=== PATIENT | female | born 1930 | race Caucasian/White ===

== ENCOUNTER 2016-11-19 17:06 | Emergency (ER) | payer OTHER ==
--- NOTE | 2016-11-19 21:09 | ED CLINICAL REPORT ---
Clinical Report - Physicians/Mid Levels [facility] [address] [place] [address] 11/19/2016 17:06 Patient: SORIN DIAZ Time Seen: 1845. Arrived- By private vehicle. Historian- patient. HISTORY OF PRESENT ILLNESS Chief Complaint: NEAR-SYNCOPE. Severity described as moderate at its maximum. When seen in the E.D., severity described as mild. Modifying factors- worsened by standing up. Relieved by rest. Described as feeling light-headed. This started just prior to arrival today and is still present. It was abrupt in onset and has been constant but is not gone now. No vomiting, hearing loss, tinnitus or ear pain. Similar symptoms previously: None. Recent medical care: Not recently seen/assessed. REVIEW OF SYSTEMS No headache, double vision, chest pain, fever or difficulty breathing. All systems otherwise negative, except as recorded above. PAST HISTORY See nurses notes. Medications: Calcium + D Oral daily . Vitamin C daily. ASA Oral 81mg , daily . Hydrochlorothiazide Oral 12.5 mg, daily. Vits multi, daily . Atorvastatin Calcium Oral 10 mg, daily. Allergies: Septra. Sulfa Antibiotics. SOCIAL HISTORY Never smoker. No alcohol use or drug use. No recent travel. Is a local resident. ADDITIONAL NOTES The nursing notes have been reviewed. PHYSICAL EXAM Vital Signs: 11/19/2016 17:18 BP: 179/72. HR: 108. RR: 20. O2 saturation: 99%. Temp: 98.2 F. Pain level now: 0/10. Oxygen saturation normal. Appearance: Alert. No acute distress. (pleasant. Cooperative. The leg.). Eyes: Pupils equal, round and reactive to light. No nystagmus. Extraocular movements normal. ENT: Normal ENT inspection. TM's normal. Moist mucous membranes. Pharynx normal. Neck: Normal inspection. Neck supple. No meningeal signs. CVS: Normal heart rate and rhythm. Heart sounds normal. Pulses normal. Respiratory: No respiratory distress. Breath sounds normal. Abdomen: Soft and nontender. No organomegaly. Skin: Skin warm and dry. Normal skin color. No rash. Normal skin turgor. Extremities: Extremities exhibit normal ROM. No lower extremity edema. Neuro: Alert. Oriented X 3. Mood/affect normal. Speech normal. Cranial nerves normal (as tested). No cerebellar findings. No motor deficit. No sensory deficit. Reflexes normal. LABS, X-RAYS, AND EKG EKG: Normal sinus rhythm. Normal P waves. Normal MANSI. Normal QRS complex. Normal axis. Normal ST and T waves, QT and QTc. The study has been interpreted contemporaneously. The study has been independently viewed by me. The EKG appears to be a good tracing. Laboratory Tests: UA-Culture if indicated: (BRIT: 11/19/2016 20:10) ( [facility] 11/19/2016 21:04) IP Test Result Flag Units (Reference) URINE COLOR YELLOW URINE APPEARANCE CLEAR URINE GLUCOSE NEGATIVE (NEGATIVE) URINE BILIRUBIN NEGATIVE (NEGATIVE) URINE KETONE 1+ (NEGATIVE) URINE SPECIFIC GRAVITY 1.015 (1.010-1.030) URINE PH 7.0 (5.0-8.0) URINE PROTEIN NEGATIVE (NEGATIVE) URINE UROBILINOGEN 0.2 EU/dL (0.2-1.0) URINE NITRITE NEGATIVE (NEGATIVE) URINE BLOOD TRACE-INTACT (NEGATIVE) URINE LEUK ESTERASE NEGATIVE (NEGATIVE) CBC w Diff: (BRIT: 11/19/2016 19:30) ( [facility] 11/19/2016 19:57) Final results Test Result Flag Units (Reference) WHITE BLOOD COUNT 9.1 K/uL (4.5-11.5) RED BLOOD COUNT 4.85 M/uL (4.00-5.20) HEMOGLOBIN 15.2 gm/dL (12.0-16.0) HEMATOCRIT 45.5 % (36.0-46.0) MEAN CELL VOLUME 94 fL (80-100) MEAN CORPUSCULAR HGB 31 pg (26-34) MEAN CORPUSCULAR HGB CONC 33 g/dL (31-37) RED CELL DISTRIBUTION WIDTH 13.2 % (11.6-14.8) PLATELET COUNT 274 K/uL (150-400) NEUTROPHIL % 81.5 H % (50-75) LYMPH % 15.3 L % (25-40) MONO % 2.6 L % (3-14) EOSINOPHIL % 0.3 % (0-4) BASOPHIL % 0.3 % (0-2) CMP: (BRIT: 11/19/2016 19:30) ( MsgRcvd 11/19/2016 20:46) Final results Test Result Flag Units (Reference) GLUCOSE 134 H mg/dL (70-110) BUN 14 mg/dL (7-18) CREATININE 0.7 mg/dL (0.6-1.3) Estimated GFR >60 mL/min Estimated GFR- >60 mL/min Note: Persistent reduction over 3 months in eGFR<60 mL/min/1.73 m2 defines CKD. Patients with eGFR values>=60 mL/min/1.73 m2 may also have CKD if evidence ofpersistent proteinuria. Additional information may be foundat [email or web address].org. SODIUM 138 mmol/L (136-145) POTASSIUM 4.0 mmol/L (3.5-5.1) CHLORIDE 99 mmol/L (98-107) CARBON DIOXIDE 29 mmol/L (21-32) CALCIUM 9.1 mg/dL (8.5-10.1) TOTAL PROTEIN 8.1 g/dL (6.4-8.2) ALBUMIN 4.0 g/dL (3.3-5.0) BILIRUBIN, TOTAL 0.7 mg/dL (0.0-1.0) ALKALINE PHOSPHATASE 66 U/L (46-116) AST (SGOT) 26 U/L (15-37) ALT (SGPT) 35 U/L (12-78) TROPONIN I <0.05 ng/mL (0.00-1.5) TROPONIN REFERENCE RANGE:<0.1 NEGATIVE0.1-1.5 INDETERMINANT>1.5 POSITIVE THYROID STIMULATING HORMONE 3.251 uIU/mL (0.30-3.74) . PROGRESS AND PROCEDURES Course of Care: The patient is a pleasant 85-year-old female presenting for evaluation of near syncope Patient describes a sensation of dizziness as lightheadedness. Patient will be evaluated with the [facility] role. Patient is agreeable to the treatment and plan. Laboratory studies will also be ordered for evaluation of potential infectious etiology including urinary tract infection. Lungs are clear on auscultation. No signs of shortness of breath onhistory or examination. Do not feel chest x-ray is warranted at this time. Patient is afebrile. The patient's work up was remarkable for the findings above. No acute findings noted on patient's urinalysis. All joints are unremarkable. No signs of anemia. Patient did have a mild tachycardia on presentation at 108 which has improved with IV hydration. Suspect patient is hypovolemic secondary to dehydration. Do not feel patient has infectious etiology or more sinister causes for her lightheadedness today. Patient has a negative workup with the [facility] be role. Patient is a stable outpatient candidate. Do not feel further workup here in the emergency department is required. Patient will be encouraged to follow up with her primary care DrPankaj if symptoms continue or persist. discussed with the patient her workup here in the emergency department including diagnosis, home care, follow-up, and return precautions. All questions have been answered. The patient expressed understanding of these instructions and was agreeable to them. Patient was reevaluated prior to discharge. Symptoms had significantly improved. Patient with some nausea which has improved with Zofran prior to departure from the emergency department. CLINICAL IMPRESSION Acute dizziness Moderate nausea. No vomiting. INSTRUCTIONS Warnings: GENERAL WARNINGS: Return or contact your physician immediately if your condition worsens or changes unexpectedly, if not improving as expected, or if other problems arise. SPECIFICALLY, return if you develop chest pain, fluttering sensation in your chest, lightheadedness, fainting, numbness, weakness or extreme fatigue. fever. Your Current Medications: CONTINUE TAKING THE FOLLOWING MEDICATIONS: ASA Oral : 81mg daily. Atorvastatin Calcium Oral : 10 mg daily. Calcium + D Oral : daily. Hydrochlorothiazide Oral : 12.5 mg daily. Vitamin C daily*. Vits multi, daily *. Prescription Medications: Zofran (orally disintegrating tablets) 4 mg: take 1 orally every 8 hours as needed for nausea and vomiting. Dispense ten (10). No refill. Substitution is permissible. Follow-up: Return to the emergency department as needed. Follow up with your doctor in three days. Reason for referral: recheck today's concerns. Summary of care provided to patient via paper. Screening today revealed the patient's blood pressure to be in the normal range. The patient should follow up with a primary care provider for blood pressure management. Understanding of the discharge instructions verbalized by patient. (Electronically signed by Ramsey Cornell Dr. 11/21/2016 13:20)
--- NOTE | 2016-11-19 21:10 | ED ORDER SUMMARY ---
..... 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) (18:44 11/19/2016 [place] Heredia) (18:46 SRoberts R.N.) CBC w Diff Urgent (18:45 11/19/2016 [place] Heredia) (Ack 18:46 Bcrner) (18:58 SRoberts R.N.) CMP Urgent (18:45 11/19/2016 [place] Heredia) (Ack 18:46 YUSUFoerner) (18:58 SRoberts R.N.) UA-Culture if indicated Urgent (18:45 11/19/2016 [place] Heredia) (Ack 18:46 YUSUFoerner) (22:45 SRoberts R.N.) Troponin-I Urgent (18:45 11/19/2016 [place] Heredia) (Ack 18:46 Bcrner) (18:58 SRoberts R.N.) Lactate, Serum Urgent (18:45 11/19/2016 [place] Heredia) (Ack 18:46 Veronicaner) (18:58 SRoberts R.N.) TSH Urgent (18:45 11/19/2016 [place] Heredia) (Ack 18:46 Bcrner) (18:58 SRoberts R.N.) Pulse oximeter (18:45 11/19/2016 [place] Heredia) (18:46 SRoberts R.N.) EKG - ER Stat (18:45 11/19/2016 [place] Heredia) (18:46 SRoberts R.N.) MEDICATION ORDERS: IV FLUIDS: IV Saline Lock (18:13 11/19/2016 Osmants R.N. per protocol) (Ack 18:13 SRoberts R.N.) (22:46 SRoberts R.N.) IV NS : initial bolus 1000 mL (1000 mL/hr), then none - for X1 (NOW) (18:45 11/19/2016 [place] Heredia) (Ack 18:48 Jazmin Colon) (19:02 Jazmin Colon) Zofran IV 4 mg (NOW) (21:22 11/19/2016 [place] Heredia) (21:51 HSoule) ORDER SHEET NOTES: [Electronically signed by Felicia Sanches R.N. (22:47 11/19/2016)] [Electronically signed by Ramsey Cornell Dr. (13:20 11/21/2016)] [Electronically locked/signed by Felicia Sanches R.N. (22:47 11/19/2016)]
--- NOTE | 2016-11-19 21:10 | ED ORDER SUMMARY ---
..... 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) (18:44 11/19/2016 [place] Heredia) (18:46 SRoberts R.N.) CBC w Diff Urgent (18:45 11/19/2016 [place] Heredia) (Ack 18:46 Bcrner) (18:58 SRoberts R.N.) CMP Urgent (18:45 11/19/2016 [place] Heredia) (Ack 18:46 YUSFUoerner) (18:58 SRoberts R.N.) UA-Culture if indicated Urgent (18:45 11/19/2016 [place] Heredia) (Ack 18:46 YUSUFoerner) (22:45 SRoberts R.N.) Troponin-I Urgent (18:45 11/19/2016 [place] Heredia) (Ack 18:46 Bcrner) (18:58 SRoberts R.N.) Lactate, Serum Urgent (18:45 11/19/2016 [place] Heredia) (Ack 18:46 Veronicaner) (18:58 SRoberts R.N.) TSH Urgent (18:45 11/19/2016 [place] Heredia) (Ack 18:46 Bcrner) (18:58 SRoberts R.N.) Pulse oximeter (18:45 11/19/2016 [place] Heredia) (18:46 SRoberts R.N.) EKG - ER Stat (18:45 11/19/2016 [place] Heredia) (18:46 SRoberts R.N.) MEDICATION ORDERS: IV FLUIDS: IV Saline Lock (18:13 11/19/2016 Osmants R.N. per protocol) (Ack 18:13 SRoberts R.N.) (22:46 SRoberts R.N.) IV NS : initial bolus 1000 mL (1000 mL/hr), then none - for X1 (NOW) (18:45 11/19/2016 [place] Heredia) (Ack 18:48 Jazmin Colon) (19:02 Jazmin Colon) Zofran IV 4 mg (NOW) (21:22 11/19/2016 [place] Heredia) (21:51 HSoule) ORDER SHEET NOTES: [Electronically signed by Felicia Sanches R.N. (22:47 11/19/2016)] [Electronically signed by Ramsey Cornell Dr. (13:20 11/21/2016)] [Electronically locked/signed by Felicia Sanches R.N. (22:47 11/19/2016)]
--- NOTE | 2016-11-19 21:10 | ED NURSING NOTES ---
Clinical Report - Nurses [facility] [address] [place] [address] 11/19/2016 17:06 Patient: SORIN DIAZ TRIAGE Triage time 17:20. Acuity: LEVEL 3. Chief Complaint: NAUSEA and VOMITING and (Light headed since 0300 am). Alert. No acute distress. SEPSIS SCREEN: Sepsis Screen: negative. Negative (no infection suspected/documented). --17:30 Felicia Sanches R.N. 17:18 11/19/16. BP: 179/72. HR: 108. RR: 20. O2 saturation: 99%. Temp: 98.2 F. Pain level now: 0/10. --17:30 Felicia Sanches R.N. Weight: 70.3 kg stated. Height/Length: 64 inches Per Patient. BMI: 26.6. --17:28 Felicia Sanches R.N. Medications Atorvastatin Calcium Oral 10 mg, daily. --17:23 Felicia Sanches R.N. Vits multi, daily . --17:23 Felicia Sanches R.N. Hydrochlorothiazide Oral 12.5 mg, daily. --17:23 Felicia Sanches R.N. ASA Oral 81mg , daily . --17:24 Felicia Sanches R.N. Vitamin C daily. --17:24 Felicia Sanches R.N. Calcium + D Oral daily . --17:26 Felicia Sanches R.N. Medication/allergy information source: the patient. --17:30 Felicia Sanches R.N. Allergies Sulfa Antibiotics. --17:22 Felicia Sanches R.N. Septra. --17:22 Felicia Sanches R.N. History Arrived by private vehicle. Historian: patient and family. Accompanied by family. Primary physician (Shaji). This started last night. She has had nausea and vomiting. No abdominal pain or fever. 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 PAST MEDICAL HX: The patient is post-menopausal. SOCIAL HX: Never smoker. Alcohol use; consumes one wine daily. No drug use. FALL RISK ASSESSMENT: Fall risk assessment completed. No fall risk identified. NUTRITIONAL RISK ASSESSMENT: The nutritional risk assessment revealed no deficiencies. FUNCTIONAL ASSESSMENT: Functional assessment: no impairments noted. LEARNING NEEDS ASSESSMENT: The learning needs assessment revealed no barriers. SKIN INTEGRITY ASSESSMENT: Skin integrity risk assessment completed. No skin integrity risk identified. --17:30 Felicia Sanches R.N. Last oral intake by patient was today 2 hours ago (water only). --17:31 Felicia Sanches R.N. PROBLEMS: Laceration. Hypertension. Hyperlipidemia. --17:27 Felicia Sanches R.N. ADDITIONAL SURGERIES: Breast Biopsy. Hammertoe . Knee Surgery. --17:27 Felicia Sanches R.N. Interventions ID band on patient. To room. --17:30 Felicia Sanches R.N. PHYSICAL ASSESSMENT To room via wheelchair. Patient gowned. GENERAL / NEURO / PSYCH: Alert. Oriented X 4. Appears anxious. HEENT: Mucous membranes are pink. RESPIRATORY: Respirations not labored. CVS: Capillary refill less than 2 seconds. GI / : Abdomen soft and nontender. SKIN: Skin is warm and dry. --17:31 Feliica Sanches R.N. NURSING PROGRESS NOTES Patient gowned. Head of bed elevated. Two patient identifiers checked. Call light placed in reach. Side rails up x 2. Bed placed in lowest position. Brakes of bed on. Patient ready for evaluation. --17:31 Felicia Sanches R.N. 19:11/19/2016 Site #1 started via IV in the left forearm with an 20g angiocath, with aseptic technique and good blood return; one attempt. Saline lock flushed with 10 mL saline. --19: Felicia Sanches R.N. 19:11/19/2016 Started bag #1 1000 mL IV Fluids IV NS (Saline); bolus of 1000 mL over 1 hour(s) then at 1000 mL/hr over 1 hour(s) via site #1 via IV pump. Allergies verified and confirmed 5 rights. IV patency established. IV site checked: no pain, redness, or swelling. IV flushed thoroughly pre- and post-medication administration. --19:02 Felicia Sanches R.N. 20:01 11/19/2016 IV Fluids IV NS Discontinued: bag #1 infused. Total amount infused: 1000 mL. IV patency established. IV site checked: no pain, redness, or swelling. IV flushed thoroughly. --20:01 Felicia Sanches R.N. 20:03 11/19/16. ( Ambulated to the bathroom, to void. Assisted by the to ambulated.). --20:03 Felicia Sanches R.N. 20:21. Patient ID band checked for patient name: patient confirmed. Clean catch urine collected with return of yellow-colored clear urine; sample sent to lab for urinalysis and culture. Specimen labeled in the presence of the patient. --20:26 Felicia Sanches R.N. 21:26 11/19/2016 Zofran (Ondansetron HCl) IVP 4 mg given over 2 minute(s) via site #1. Allergies verified and confirmed 5 rights. IV patency established. IV site checked: no pain, redness, or swelling. IV flushed thoroughly pre- and post-medication administration. IVP given by RN. --21:51 Neva Reveles. DISPOSITION / DISCHARGE 21:35. Condition at departure: improved. No learning barriers present. Discharge instructions provided and reviewed with the patient and spouse. Reviewed medication(s) side effects, precautions, dosing and course information. Prescription(s) given to the patient. Patient verbalized understanding. Written instructions provided in Lao. The patient was discharged home and accompanied by spouse. She left the Emergency Department ambulatory and via private vehicle. Spouse driving. Medication list reviewed and validated. --22:45 Felicia Sanches R.N. 21:30 11/19/16. BP: 156/79. HR: 88. RR: 18. O2 saturation: 99%. Temp: 98.8 F. Pain level now: 0/10. 19:23 11/19/16. BP: 165/88. HR: 85. RR: 20. O2 saturation: 98% on room air. 18:13 11/19/16. BP: 169/74. HR: 78. RR: 20. O2 saturation: 99% on room air. 17:18 11/19/16. BP: 179/72. HR: 108. RR: 20. O2 saturation: 99%. Temp: 98.2 F. Pain level now: 0/10. --22:45 Felicia Sanches R.N. Locked/Released at 11/19/2016 22:47 by Felicia Sanches R.N.
--- NOTE | 2016-11-21 13:21 | ED MAR SUMMARY ---
..... Medication Administration Record [facility] [address] [place] [address] Patient: SORIN DIAZ Visit ID: [id number] 85y, F Weight: 70.3 kg Height/Length: 64 in BMI: 26.6 ALLERGIES: Septra, Sulfa Antibiotics Start 19:02 11/19/2016 Felicia Sanches R.N., Stop 20:01 11/19/2016 Felicia Sanches R.N. Medication Administered: IV NS (SALINE), Dose: IV Fluids over 1 hour(s), Rate: 1000 mL/hr, Bolus: 1000 mL over 1 hour(s), Dispensed: 1000 mL bag, Site: #1 left forearm. Medication Ordered: IV NS : initial bolus 1000 mL (1000 mL/hr), then none - for X1 (NOW). Given 21:26 11/19/2016 Neva Reveles, Medication Administered: ZOFRAN [IVP] (ONDANSETRON HCL), Dose: 4 mg IVP over 2 minute(s), Site: #1 left forearm. Medication Ordered: Zofran IV 4 mg (NOW).
--- NOTE | 2016-11-21 13:21 | ED DISCHARGE INSTRUCTIONS ---
Patient: SORIN DIAZ General Instructions [facility] VisitID: [id number] [place] [address] 85y, F Registration Date/Time: 11/19/2016 Acute dizziness Moderate nausea. No vomiting. INSTRUCTIONS Warnings: GENERAL WARNINGS: Return or contact your physician immediately if your condition worsens or changes unexpectedly, if not improving as expected, or if other problems arise. SPECIFICALLY, return if you develop chest pain, fluttering sensation in your chest, lightheadedness, fainting, numbness, weakness or extreme fatigue. fever. Your Current Medications: CONTINUE TAKING THE FOLLOWING MEDICATIONS: ASA Oral : 81mg daily. Atorvastatin Calcium Oral : 10 mg daily. Calcium + D Oral : daily. Hydrochlorothiazide Oral : 12.5 mg daily. Vitamin C daily*. Vits multi, daily *. Prescription Medications: Zofran (orally disintegrating tablets) 4 mg: take 1 orally every 8 hours as needed for nausea and vomiting. Dispense ten (10). No refill. Substitution is permissible. Follow-up: Return to the emergency department as needed. Follow up with your doctor in three days. Reason for referral: recheck today's concerns. Summary of care provided to patient via paper. Screening today revealed the patient's blood pressure to be in the normal range. The patient should follow up with a primary care provider for blood pressure management. Understanding of the discharge instructions verbalized by patient. ADDITIONAL INFORMATION Dizziness [Uncertain Cause] Dizziness is a common symptom sometimes described as "lightheadedness" or feeling like you are going to faint. If it lasts for only a few seconds and is related to changes in position (such as getting up after lying or sitting for a long time), it is usually not a sign of anything serious. Dizziness that lasts for minutes to hours, or comes on for no apparent reason, may be a sign of a more serious problem (such as dehydration, a medicine reaction, disease of the heart or brain). Today's exam did not show an exact cause for your dizzy spell . Sometimes additional tests are required before a cause can be found. Therefore, it is important to follow up with your doctor if your symptoms continue. Home Care: 1) If a dizzy spell occurs and lasts more than a few seconds, lie down until it passes. If you are lying down, then you cannot hurt yourself by falling if you do faint. 2) Do not drive or operate dangerous equipment until the dizzy spells have stopped for at least 48 hours. 3) If dizzy spells occur with sudden standing, this may be a sign of mild dehydration. Drink extra fluids over the next few days. 4) If you recently started a new medicine or if you had the dose of a current medicine increased (especially blood pressure medicine), talk with the prescribing doctor about your symptoms. Dose adjustments may be needed. Follow Up with your doctor for further evaluation within the next seven days, if your symptoms continue. Get Prompt Medical Attention if any of the following occur: -- Worsening of your symptoms -- Fainting, headache or seizure -- Repeated vomiting -- Feeling like you or the room is spinning -- Chest, arm, neck, back or jaw pain -- Palpitations (the sense that your heart is fluttering or beating fast or hard) -- Shortness of breath -- Blood in vomit or stool (black or red color) -- Weakness of an arm or leg or one side of the face -- Difficulty with speech or vision Ondansetron Oral disintegrating tablet What is this medicine? ONDANSETRON (on [place] se wendy) is used to treat nausea and vomiting caused by chemotherapy. It is also used to prevent or treat nausea and vomiting after surgery. How should I use this medicine? These tablets are made to dissolve in the mouth. Do not try to push the tablet through the foil backing. With dry hands, peel away the foil backing and gently remove the tablet. Place the tablet in the mouth and allow it to dissolve, then swallow. While you may take these tablets with water, it is not necessary to do so. Talk to your statistician theoretical regarding the use of this medicine in children. Special care may be needed. What side effects may I notice from receiving this medicine? Side effects that you should report to your doctor or health child care associate teacher as soon as possible: allergic reactions like skin rash, itching or hives, swelling of the face, lips, or tongue breathing problems dizziness fast or irregular heartbeat feeling faint or lightheaded, falls fever and chills swelling of the hands and feet tightness in the chest Side effects that usually do not require medical attention (report to your doctor or health child care associate teacher if they continue or are bothersome): constipation or diarrhea headache What may interact with this medicine? Do not take this medicine with any of the following medications: -apomorphine -cisapride -dofetilide -dronedarone -pimozide -thioridazine -ziprasidone This medicine may also interact with the following medications: -carbamazepine -phenytoin -rifampicin -tramadol -other medicines that prolong the QT interval (cause an abnormal heart rhythm) What if I miss a dose? If you miss a dose, take it as soon as you can. If it is almost time for your next dose, take only that dose. Do not take double or extra doses. Where should I keep my medicine? Keep out of the reach of children. Store between 2 and 30 degrees C (36 and 86 degrees F). Throw away any unused medicine after the expiration date. What should I tell my health care provider before I take this medicine? They need to know if you have any of these conditions: heart disease history of irregular heartbeat liver disease low levels of magnesium or potassium in the blood an unusual or allergic reaction to ondansetron, granisetron, other medicines, foods, dyes, or preservatives or trying to get breast-feeding What should I watch for while using this medicine? Check with your doctor or health child care associate teacher as soon as you can if you have any sign of an allergic reaction. You have been given the following additional information: Dizziness, Unk Cause Ondansetron Oral disintegrating tablet (Electronically signed by Ramsey Cornell Dr. 11/21/2016 13:20)
--- NOTE | 2016-11-21 13:21 | ED MAR SUMMARY ---
..... Medication Administration Record [facility] [address] [place] [address] Patient: SORIN DIAZ Visit ID: [id number] 85y, F Weight: 70.3 kg Height/Length: 64 in BMI: 26.6 ALLERGIES: Septra, Sulfa Antibiotics Start 19:02 11/19/2016 Felicia Sanches R.N., Stop 20:01 11/19/2016 Felicia Sanches R.N. Medication Administered: IV NS (SALINE), Dose: IV Fluids over 1 hour(s), Rate: 1000 mL/hr, Bolus: 1000 mL over 1 hour(s), Dispensed: 1000 mL bag, Site: #1 left forearm. Medication Ordered: IV NS : initial bolus 1000 mL (1000 mL/hr), then none - for X1 (NOW). Given 21:26 11/19/2016 Neva Reveles, Medication Administered: ZOFRAN [IVP] (ONDANSETRON HCL), Dose: 4 mg IVP over 2 minute(s), Site: #1 left forearm. Medication Ordered: Zofran IV 4 mg (NOW).
--- NOTE | 2016-11-21 13:21 | ED MED RECONCILIATION SUMMARY ---
Patient: SORIN DIAZ Medication Reconciliation Report [facility] VisitID: [id number] [address] [place] [address] 85y, F Registration Date/Time: 11/19/2016 Weight: 70.3 kg Height/Length: 64 in. BMI: 26.6 ALLERGIES: Septra, Sulfa Antibiotics The patient's Home Medications are listed below: CONTINUE TAKING THE FOLLOWING MEDICATIONS: ASA Oral 81mg , daily Atorvastatin Calcium Oral 10 mg, daily Calcium + D Oral daily Hydrochlorothiazide Oral 12.5 mg, daily Vitamin C daily Vits multi, daily The source(s) of the original Home Medication information: patient The following Medications were given to the patient in the Emergency Department: IV NS IV Fluids bolus 1000 mL over 1 hour(s), then 1000 mL/hr, administered: 11/19/2016 7:02:00 PM Zofran [IVP] IVP 4 mg, administered: 11/19/2016 9:26:00 PM The following Medications were prescribed to the patient: Zofran (orally disintegrating tablets) 4 mg: take 1 orally every 8 hours as needed for nausea and vomiting. Dispense ten (10). No refill. Substitution is permissible. -- Ramsey [address] Dr.
--- NOTE | 2016-11-21 13:21 | ED DISCHARGE INSTRUCTIONS ---
Patient: SORIN DIAZ General Instructions [facility] VisitID: [id number] [place] [address] 85y, F Registration Date/Time: 11/19/2016 Acute dizziness Moderate nausea. No vomiting. INSTRUCTIONS Warnings: GENERAL WARNINGS: Return or contact your physician immediately if your condition worsens or changes unexpectedly, if not improving as expected, or if other problems arise. SPECIFICALLY, return if you develop chest pain, fluttering sensation in your chest, lightheadedness, fainting, numbness, weakness or extreme fatigue. fever. Your Current Medications: CONTINUE TAKING THE FOLLOWING MEDICATIONS: ASA Oral : 81mg daily. Atorvastatin Calcium Oral : 10 mg daily. Calcium + D Oral : daily. Hydrochlorothiazide Oral : 12.5 mg daily. Vitamin C daily*. Vits multi, daily *. Prescription Medications: Zofran (orally disintegrating tablets) 4 mg: take 1 orally every 8 hours as needed for nausea and vomiting. Dispense ten (10). No refill. Substitution is permissible. Follow-up: Return to the emergency department as needed. Follow up with your doctor in three days. Reason for referral: recheck today's concerns. Summary of care provided to patient via paper. Screening today revealed the patient's blood pressure to be in the normal range. The patient should follow up with a primary care provider for blood pressure management. Understanding of the discharge instructions verbalized by patient. ADDITIONAL INFORMATION Dizziness [Uncertain Cause] Dizziness is a common symptom sometimes described as "lightheadedness" or feeling like you are going to faint. If it lasts for only a few seconds and is related to changes in position (such as getting up after lying or sitting for a long time), it is usually not a sign of anything serious. Dizziness that lasts for minutes to hours, or comes on for no apparent reason, may be a sign of a more serious problem (such as dehydration, a medicine reaction, disease of the heart or brain). Today's exam did not show an exact cause for your dizzy spell . Sometimes additional tests are required before a cause can be found. Therefore, it is important to follow up with your doctor if your symptoms continue. Home Care: 1) If a dizzy spell occurs and lasts more than a few seconds, lie down until it passes. If you are lying down, then you cannot hurt yourself by falling if you do faint. 2) Do not drive or operate dangerous equipment until the dizzy spells have stopped for at least 48 hours. 3) If dizzy spells occur with sudden standing, this may be a sign of mild dehydration. Drink extra fluids over the next few days. 4) If you recently started a new medicine or if you had the dose of a current medicine increased (especially blood pressure medicine), talk with the prescribing doctor about your symptoms. Dose adjustments may be needed. Follow Up with your doctor for further evaluation within the next seven days, if your symptoms continue. Get Prompt Medical Attention if any of the following occur: -- Worsening of your symptoms -- Fainting, headache or seizure -- Repeated vomiting -- Feeling like you or the room is spinning -- Chest, arm, neck, back or jaw pain -- Palpitations (the sense that your heart is fluttering or beating fast or hard) -- Shortness of breath -- Blood in vomit or stool (black or red color) -- Weakness of an arm or leg or one side of the face -- Difficulty with speech or vision Ondansetron Oral disintegrating tablet What is this medicine? ONDANSETRON (on [place] se wendy) is used to treat nausea and vomiting caused by chemotherapy. It is also used to prevent or treat nausea and vomiting after surgery. How should I use this medicine? These tablets are made to dissolve in the mouth. Do not try to push the tablet through the foil backing. With dry hands, peel away the foil backing and gently remove the tablet. Place the tablet in the mouth and allow it to dissolve, then swallow. While you may take these tablets with water, it is not necessary to do so. Talk to your phlebotomy services representative regarding the use of this medicine in children. Special care may be needed. What side effects may I notice from receiving this medicine? Side effects that you should report to your doctor or health field care manager as soon as possible: allergic reactions like skin rash, itching or hives, swelling of the face, lips, or tongue breathing problems dizziness fast or irregular heartbeat feeling faint or lightheaded, falls fever and chills swelling of the hands and feet tightness in the chest Side effects that usually do not require medical attention (report to your doctor or health field care manager if they continue or are bothersome): constipation or diarrhea headache What may interact with this medicine? Do not take this medicine with any of the following medications: -apomorphine -cisapride -dofetilide -dronedarone -pimozide -thioridazine -ziprasidone This medicine may also interact with the following medications: -carbamazepine -phenytoin -rifampicin -tramadol -other medicines that prolong the QT interval (cause an abnormal heart rhythm) What if I miss a dose? If you miss a dose, take it as soon as you can. If it is almost time for your next dose, take only that dose. Do not take double or extra doses. Where should I keep my medicine? Keep out of the reach of children. Store between 2 and 30 degrees C (36 and 86 degrees F). Throw away any unused medicine after the expiration date. What should I tell my health care provider before I take this medicine? They need to know if you have any of these conditions: heart disease history of irregular heartbeat liver disease low levels of magnesium or potassium in the blood an unusual or allergic reaction to ondansetron, granisetron, other medicines, foods, dyes, or preservatives or trying to get breast-feeding What should I watch for while using this medicine? Check with your doctor or health field care manager as soon as you can if you have any sign of an allergic reaction. You have been given the following additional information: Dizziness, Unk Cause Ondansetron Oral disintegrating tablet (Electronically signed by Ramsey Cornell Dr. 11/21/2016 13:20)
--- NOTE | 2016-11-21 13:21 | ED MED RECONCILIATION SUMMARY ---
Patient: SORIN DIAZ Medication Reconciliation Report [facility] VisitID: [id number] [address] [place] [address] 85y, F Registration Date/Time: 11/19/2016 Weight: 70.3 kg Height/Length: 64 in. BMI: 26.6 ALLERGIES: Septra, Sulfa Antibiotics The patient's Home Medications are listed below: CONTINUE TAKING THE FOLLOWING MEDICATIONS: ASA Oral 81mg , daily Atorvastatin Calcium Oral 10 mg, daily Calcium + D Oral daily Hydrochlorothiazide Oral 12.5 mg, daily Vitamin C daily Vits multi, daily The source(s) of the original Home Medication information: patient The following Medications were given to the patient in the Emergency Department: IV NS IV Fluids bolus 1000 mL over 1 hour(s), then 1000 mL/hr, administered: 11/19/2016 7:02:00 PM Zofran [IVP] IVP 4 mg, administered: 11/19/2016 9:26:00 PM The following Medications were prescribed to the patient: Zofran (orally disintegrating tablets) 4 mg: take 1 orally every 8 hours as needed for nausea and vomiting. Dispense ten (10). No refill. Substitution is permissible. -- Ramsey [address] Dr.
== END 2016-11-19 21:35 | disposition home or self-care (01) ==
LOC: ED SRH 17:06
DX: R42 Dizziness and giddiness (principal); R11.2 Nausea with vomiting, unspecified; I10 Essential (primary) hypertension; E78.5 Hyperlipidemia, unspecified; Z79.82 Long term (current) use of aspirin; Z79.899 Other long term (current) drug therapy; Z88.1 Allergy status to other antibiotic agents; Z88.2 Allergy status to sulfonamides
CPT/HCPCS: 90004; 90100; 90616; 93140; 95059